=== PATIENT | female | born 1990 | race Asian ===

== ENCOUNTER 2017-01-04 14:49 | Emergency (ER) | payer OTHER ==
[2017-01-04 15:41] VITALS: BP 103/58; PULSE 60; TEMP 98.2; BMI 27.4
--- NOTE | 2017-01-04 16:10 | PDOC ---
History of Present Illness - General History Source: Patient Exam Limitations: No Limitations - History of Present Illness Initial Comments: 01/04/17 16:29 Pt is a 26 yo F with no PMHx who presents to the ED with R lower back pain for the past day. Patient reports gradual onset of lower back pain that began 2 months ago, intermittent in nature however progressively worsened today. Patient states she bent down at work and immediately experienced the pain. Patient reports the pain is constant, 10/10 in severity, nonradiating. Patient has been using massaging techniques, Ibuprofen, Excedrin with minimal relief and presents to the ED for further evaluation. She reports difficulty walking however denies any numbness, tingling or weakness in her extremities. Patient denies any urine/bowel incontinence. Patient denies any dysuria, frequency, urgency or hematuria. Patient denies sick contacts or recent travel. <Lanette Mak - Last Filed: 01/04/17 16:29> - General History Source: Patient, Spouse Exam Limitations: No Limitations <Ana Carranza - Last Filed: 01/04/17 16:51> - General Chief Complaint: Back Pain Stated Complaint: BACK PAIN Time Seen by Provider: 01/04/17 15:54 Past History <Lanette Mak - Last Filed: 01/04/17 16:29> - Past Medical History COPD: Yes - Suicide/Smoking/Psychosocial Hx Smoking History: Never smoked Have you smoked in the past 12 months: No Information on smoking cessation initiated: No Hx Alcohol Use: No Drug/Substance Use Hx: No Substance Use Type: None <Ana Carranza - Last Filed: 01/04/17 16:51> - Past Medical History Allergies/Adverse Reactions: Allergies Allergy/AdvReac Type Severity Reaction Status Date / Time No Known Allergies Allergy Verified 01/04/17 16:40 Home Medications: Ambulatory Orders Cyclobenzaprine HCl [Flexeril 10 mg] 10 mg PO BID PRN #14 tablet 01/04/17 Review of Systems - Review of Systems Able to Perform ROS?: Yes Comments:: 01/04/17 16:30 CONSTITUTIONAL: Absent: fever, no chills, no fatigue EYES: Absent: visual changes ENT: Absent: ear pain, no sore throat CARDIOVASCULAR: Absent: chest pain, no palpitations RESPIRATORY: Absent: cough, no SOB GI: Absent: abdominal pain, no nausea, no vomiting, no constipation, no diarrhea GENITOURINARY: Absent: dysuria, no frequency, no hematuria MUSCULOSKELETAL: +back pain. Absent: no arthralgia, no myalgia SKIN: Absent: rash NEURO: Absent: headache <Lanette Mak - Last Filed: 01/04/17 16:29> *Physical Exam - Vital Signs Last Vital Signs Temp Pulse Resp BP Pulse Ox 98.2 F 60 18 103/58 100 01/04/17 15:35 01/04/17 15:35 01/04/17 15:35 01/04/17 15:35 01/04/17 15:35 - Physical Exam Comments: 01/04/17 16:30 GENERAL: Well-appearing, well-nourished. No apparent distress. HEENT: Normocephalic, atraumatic. PERRL, EOM intact. CARDIOVASCULAR: Normal S1, S2. Regular rate and rhythm. PULMONARY: Clear to auscultation bilaterally. ABDOMEN: Soft, non-distended, non-tender. EXTREMITIES: Normal ROM in all four extremities. No gross deformities. +Palpable spasm on R side extending from scapula to paraischial spine. SKIN: Warm, dry. No rash NEUROLOGICAL: No focal neurological deficits. <Lanette Mak - Last Filed: 01/04/17 16:29> - Vital Signs Last Vital Signs Temp Pulse Resp BP Pulse Ox 98.2 F 60 18 103/58 100 01/04/17 15:35 01/04/17 15:35 01/04/17 15:35 01/04/17 15:35 01/04/17 15:35 - Physical Exam Comments: 01/04/17 16:48 General Appearance: Yes: Appropriately Dressed Musculoskeletal: positive: Normal Inspection, Vertebral Tenderness (no true spine tenderness, crepitus step-offs. Palpable spasm noted to the paravertebral spinous muscles extending from his she'll spine up to scapular area on the right side. Unable to perform leg Meenu's test secondary to the spasm. Neurovascular intact to foot on the right side.) Extremity: positive: Tender. negative: Normal Range of Motion Neurologic: positive: paper novelty maker II-XII NML intact, Fully Oriented, Alert, Normal Mood/ Affect <Ana Carranza - Last Filed: 01/04/17 16:51> Progress Note - Progress Note Progress Note: Back spasm, will treat with NSAIDs and cyclobenzaprine <Ana Carranza - Last Filed: 01/04/17 16:51> Medical Decision Making - Medical Decision Making 01/04/17 16:30 Ana Carranza : The scribe's documentation has been prepared under my direction and personally reviewed by me in its entirety. I confirm that the note above accurately reflects all work, treatment, procedures, and medical decision making performed by me. <Lanette Mak - Last Filed: 01/04/17 16:29> *DC/Admit/Observation/Transfer - Attestations Scribe Attestion: 01/04/17 16:30 Documentation prepared by Lanette Mak, acting as remote medical coder for Ana Carranza OUTCOMES ANALYST <Lanette Mak - Last Filed: 01/04/17 16:29> - Discharge Dispostion Admit: No <Ana Carranza - Last Filed: 01/04/17 16:51> Diagnosis at time of Disposition: History of strain of back - Discharge Dispostion Disposition: HOME Condition at time of disposition: Stable - Prescriptions Prescriptions: Cyclobenzaprine HCl [Flexeril 10 mg] 10 mg PO BID PRN #14 tablet PRN Reason: spasm - Patient Instructions Printed Discharge Instructions: DI for Back Spasm Additional Instructions: Rest, no heavy lifting or exercise until pain is resolved Hot soaks to neck and low back as often as possible/hot showers or Jacuzzis No massage or therapy until spasm is gone Continue ibuprofen 2-200 mg tablets every 6 hours for the next 3 days then as needed for pain and swelling Cyclobenzaprine 1-10mg every 8 hours as needed for spasm If not significant improvement within 24 hours with medication and rest regime, followup with private physician for change in medications and /or therapy. - Post Discharge Activity Forms/Work/School Notes: Back to Work
[2017-01-04] MEDS ORDERED: KETOROLAC TROMETHAMINE 60 MG/2 ML VIAL IM ONE (16:11)
[2017-01-04] MEDS ORDERED: CYCLOBENZAPRINE HCL 10 MG TABLET (FP) PO ONE (16:11)
[2017-01-04 16:35] LABS: URINE APPEARANCE CLOUDY; URINE BILIRUBIN NEGATIVE (NEGATIVE); URINE BLOOD NEGATIVE (NEGATIVE); URINE COLOR YELLOW; URINE GLUCOSE (UA) NEGATIVE (NEGATIVE); URINE KETONE NEGATIVE (NEGATIVE); URINE NITRITE NEGATIVE (NEGATIVE); URINE PROTEIN NEGATIVE (NEGATIVE); URINE UROBILINOGEN NEGATIVE mg/dL (0.2-1.0)
[2017-01-04] MEDS ORDERED: CYCLOBENZAPRINE HCL 10 MG TABLET (FP) ONE ×2 (16:47→16:58)
[2017-01-04 20:41] LABS: URINE LEUK ESTERASE Negative (NEGATIVE)
== END 2017-01-04 17:00 | disposition home or self-care (01) ==
LOC: JERFT 14:49 → JER 14:49 → JERFT 17:00
PROC: 3E0233Z Introduction of Anti-inflammatory into Muscle, Percutaneous Approach (ICD-10-PCS; principal; 2017-01-04)
DX: S39.012A Strain of muscle, fascia and tendon of lower back, initial encounter (principal); M62.830 Muscle spasm of back; X50.0XXA Overexertion from strenuous movement or load, initial encounter; Y93.89 Activity, other specified; Y92.69 Other specified industrial and construction area as the place of occurrence of the external cause; Y99.0 Civilian activity done for income or pay
CPT/HCPCS: 81003; 84703; 99281-25